=== PATIENT | female | born 2000 | race Caucasian/White ===

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

== ENCOUNTER 2018-07-14 20:32 | Emergency (ER) | payer MEDICAID, OTHER ==
[~2018-07-14] VITALS: Ht 154.9 cm; Wt 81.6 kg
[2018-07-14] MEDS ORDERED: NAPR220T66 PO (20:47)
[2018-07-14] MEDS ORDERED: AZITHROMYCIN 250 MG TABLET ONE (23:15)
[2018-07-14] MEDS ORDERED: predniSONE 50 MG TABLET ONE (23:15)
[2018-07-14] MEDS: predniSONE 50 MG TABLET PO ONE (23:16)
[2018-07-14] MEDS: AZITHROMYCIN 250 MG TABLET PO ONE (23:16)
--- NOTE | 2018-07-14 23:20 | NUR ---
Patient discharged to home in stable conditon. Written and verbal after care instructions given. Patient verbalizes understanding of instructions.
[2018-07-14 23:21] VITALS: BP 120/78
== END 2018-07-14 23:36 | disposition home or self-care (01) ==
LOC: ER 20:52
DX: J02.0 Streptococcal pharyngitis (principal); J45.909 Unspecified asthma, uncomplicated; F17.200 Nicotine dependence, unspecified, uncomplicated; Z88.0 Allergy status to penicillin
CPT/HCPCS: 36415; 86403; 87070; 87400; A4663; J7512; Q0144

== ENCOUNTER 2018-12-16 11:09 | Emergency (ER) | payer OTHER ==
[~2018-12-16] VITALS: Ht 154.9 cm; Wt 81.6 kg
[~2018-12-16 11:09] MED LIST changes: -ESCI10TA PO; +NAPR220T66 PO
--- NOTE | 2018-12-16 11:22 | NUR ---
PT A/OX4, PRESENTS TO THE ER C/O BILATERAL FEET IRRITATION FROM "ATHLETE'S FOOT". PT REPORTS RECENT FLARE UP SINCE 2 DAYS AGO. VSS. NO VISIBLE BREAK IN THE SKIN. PT DENIES PAIN, C/P, SOB, N/V/D, DIZZINESS, HEADACHE.
--- NOTE | 2018-12-16 11:48 | NUR ---
RASHMI REYES AT BEDSIDE FOR MSE.
--- NOTE | 2018-12-16 11:53 | NUR ---
DPatient discharged to home in stable conditon. Written and verbal after care instructions given. Patient verbalizes understanding of instructions. ALL BELONGINGS W/ PT. PT SELF-AMBULATED W/O DIFFICULTY.
[2018-12-16 11:54] VITALS: BP 131/66
== END 2018-12-16 11:55 | disposition home or self-care (01) ==
LOC: ER 11:09
DX: B35.3 Tinea pedis (principal); J45.909 Unspecified asthma, uncomplicated; F17.200 Nicotine dependence, unspecified, uncomplicated; Z88.0 Allergy status to penicillin; Z79.899 Other long term (current) drug therapy
CPT/HCPCS: A4663

== ENCOUNTER 2023-08-14 20:23 | Emergency (ER) | payer BC, MEDICAID ==
[~2023-08-14] VITALS: Ht 154.9 cm; Wt 77.1 kg
[2023-08-14 20:55] LABS: *BILIRUBIN,URIN NEGATIVE (NEGATIVE); *BLOOD, URINE NEGATIVE (NEGATIVE); *CLARITY,URINE CLEAR (CLEAR); *COLOR,URINE YELLOW (YELLOW); *KETONES,URINE TRACE (NEGATIVE); *PROTEIN,URINE TRACE (NEGATIVE); LEUKOCYTE ESTERASE ,URINE NEGATIVE (NEGATIVE); NITRITE, URINE NEGATIVE (NEGATIVE); PH,URINE 8.5 (5.0-8.0); UGLUCOSE NEGATIVE (NEGATIVE)
[2023-08-14 20:57] LABS: *URINE HCG, QUAL NEGATIVE (NEGATIVE)
[2023-08-14 21:07] LABS: BACTERIA,URINE MODERATE /HPF (NONE SEEN); RBC,URINE 0-3 /HPF (0-3); SQUAMOUS EPITHELIAL CELL,UR MODERATE /HPF (NONE SEEN); WBC,URINE NONE SEEN /HPF (0-3)
[2023-08-14] MEDS ORDERED: IOHEXOL 350 100 ML INFUS..BTL ONE (21:13)
[2023-08-14] MEDS ORDERED: IV NORMAL SALINE 250 ML IV ONE (21:13)
[2023-08-14] MEDS ORDERED: SWABABLE VALVE TRANSFER SET EA MC ONE (21:13)
[2023-08-14] MEDS ORDERED: IV NORMAL SALINE 1000 ML BAG IV ONE (21:30)
[2023-08-14 23:16] VITALS: BP 125/86; TEMP 98.3; O2SAT 98
== END 2023-08-14 23:19 | disposition home or self-care (01) ==
LOC: ER 20:45
DX: M25.512 Pain in left shoulder (principal); R10.9 Unspecified abdominal pain; J45.909 Unspecified asthma, uncomplicated; F17.200 Nicotine dependence, unspecified, uncomplicated; Z79.899 Other long term (current) drug therapy; Z88.0 Allergy status to penicillin
CPT/HCPCS: 99285; 74177; 81001; 84703; 87086; Q9967; J7040; A4606; A4663